=== PATIENT | male | born 1965 | race Caucasian/White ===

== ENCOUNTER 2018-02-16 11:34 | Emergency (ER) | payer OTHER ==
[~2018-02-16] VITALS: Ht 182.9 cm; Wt 90.7 kg
== END 2018-02-16 16:05 | disposition home or self-care (01) ==
LOC: ED 11:34
DX: K21.9 Gastro-esophageal reflux disease without esophagitis (principal); B34.9 Viral infection, unspecified; Z87.01 Personal history of pneumonia (recurrent); I10 Essential (primary) hypertension
CPT/HCPCS: 71045; 80053; 83605; 85025; 94640; 96374; 99283; J2405; J7120